=== PATIENT | male | born 1945 | race Caucasian/White ===

== ENCOUNTER 2023-11-17 09:11 | Emergency (ER) | payer MEDICARE, MEDICAID ==
[~2023-11-17] VITALS: Ht 162.6 cm; Wt 77.0 kg
[2023-11-17 09:14] VITALS: O2SAT 98
[2023-11-17] MEDS: SODIUM CHLORIDE 0.9% 1,000 ML IV ONE (09:42)
[2023-11-17 09:53] VITALS: TEMP 37.05852
[2023-11-17 09:56] LABS: CHLORIDE 98 mEq/L (98-107); POTASSIUM 3.8 mEq/L (3.5-5.1); SODIUM 134 mEq/L (136-145)
[2023-11-17 09:57] LABS: BASOPHILS % 1.1 % (0.0-2.0); CALCIUM 9.6 mg/dL (8.7-10.4); CARBON DIOXIDE 28 mEq/L (21-32); EOSINOPHILS % 2.5 % (0.0-5.0); HEMATOCRIT. 42.1 % (42.0-52.0); HEMOGLOBIN. 14.5 g/dL (14.0-18.0); LYMPHOCYTES % 29.8 % (20.0-50.0); MEAN CORPUSCULAR HEMOGLOBIN 33.9 pg (28.0-32.0); MEAN CORPUSCULAR HGB CONC 34.5 g/dL (31.0-37.0); MEAN CORPUSCULAR VOLUME 98.2 fL (80.0-94.0); MONOCYTES % 4.2 % (2.0-8.0); NEUTROPHILS % 62.4 % (40.0-76.0); PLATELET 316 x1000/uL (130-400); RED BLOOD CELL COUNT 4.29 mill/uL (4.7-6.1); RED CELL DISTRIBUTION WIDTH 13.3 % (11.6-14.6); WHITE BLOOD COUNT 6.8 x1000/uL (4.5-11.0)
[2023-11-17 10:02] LABS: CREATININE 1.1 mg/dL (0.6-1.3); GLUCOSE 233 mg/dL (70-105); UREA NITROGEN BLOOD 16 mg/dL (9-23)
[2023-11-17 12:53] VITALS: BP 155/80; PULSE 82; RESP 19; O2SAT 98
[2023-11-20] MEDS ORDERED: ROSU20CA PO (04:13)
[2023-11-20] MEDS ORDERED: AMLO10TA80 PO (04:17)
[2023-11-20] MEDS ORDERED: MELO-106 (04:17)
[2023-11-20] MEDS ORDERED: METF-414 PO (04:17)
[2023-11-20] MEDS ORDERED: PREG75CA76 PO (04:17)
[2023-11-20] MEDS ORDERED: GLIP5TAB22 PO (04:17)
[2023-11-23] MEDS ORDERED: FLOR MT (12:31)
== END 2023-11-17 13:12 | disposition home or self-care (01) ==
LOC: ER 09:11
DX: R55 Syncope and collapse (principal); E86.0 Dehydration; R42 Dizziness and giddiness; E11.9 Type 2 diabetes mellitus without complications; I10 Essential (primary) hypertension
CPT/HCPCS: 99285; 96360; J7030; 36415; 71045; 80048; 85025; 93005